=== PATIENT | female | born 1980 | race Two or more races ===

== ENCOUNTER 2023-08-16 08:16 | Outpatient (CLI) | payer OTHER | END 2023-08-16 08:25 | disposition home or self-care (01) | LOC: LAB 08:16 → EDBD 08:16 → LAB 08:25 | PROVIDERS: ATTEND General Practice | DX: E78.2 Mixed hyperlipidemia (principal); E11.9 Type 2 diabetes mellitus without complications; I11.9 Hypertensive heart disease without heart failure; E03.9 Hypothyroidism, unspecified; J45.909 Unspecified asthma, uncomplicated ==

== ENCOUNTER 2023-09-16 10:36 | Outpatient (CLI) | payer OTHER | END 2023-09-16 10:40 | disposition home or self-care (01) | LOC: MAMO-SONO 10:36 | PROVIDERS: ATTEND Obstetrics & Gynecology | DX: Z12.31 Encounter for screening mammogram for malignant neoplasm of breast (principal); N60.12 Diffuse cystic mastopathy of left breast; N60.11 Diffuse cystic mastopathy of right breast; N91.1 Secondary amenorrhea ==

== ENCOUNTER → 2024-09-18 07:13 | Outpatient (CLI) | payer OTHER ==
[2024-09-18 08:55] LABS: URINE APPEARANCE Clear; URINE BILIRRUBIN Negative (NEGATIVE); URINE BLOOD Small; URINE COLOR Yellow; URINE GLUCOSE Negative (NEGATIVE); URINE KETONE Negative (NEGATIVE); URINE LEUKOCYTE Small; URINE NITRATE Negative; URINE PROTEIN Negative (NEGATIVE); URINE UROBILINOGEN 0.2 E.U./dl
[2024-09-18 08:57] LABS: HEMATOCRIT 42.2 % (36.0-45.00); HEMOGLOBIN 14.4 g/dL (12.0-15.00); MEAN CELL VOLUME 91.8 fL (80.00-100.00); MEAN CORPUSCULAR HEMOGLOBIN 31.3 pg (27.00-32.0); MEAN CORPUSCULAR HGB CONC 34.1 g/dl (32.0-36.0); PLATELET COUNT 319 K/uL (150-450); RED BLOOD COUNT 4.59 M/uL (4.00-6.00); RED CELL DISTRIBUTION WIDTH 13.2 % (11.5-14.5)
[2024-09-18 09:00] LABS: URINE BACTERIA 3003.5 uL (0.0-1933); URINE EPITHELIAL CELLS 28.2 uL (0.0-38.8); URINE RBC 43.9 uL (0.0-20.8); URINE WBC 38.8 uL (0.0-23.2)
[2024-09-18 09:25] LABS: ALBUMIN 3.8 gm/dL (3.4-5.0); BILIRUBIN TOTAL 0.36 mg/dL (0.3-1.2); CALCIUM 9.2 mg/dL (8.5-10.1); CHOL HDL RATIO 3.1 (0-5.0); CREATININE SERUM 0.71 mg/dL (0.55-1.02); GFR 89.02; GLOBULINA 3.6 G/DL (2.4-3.5); POTASSIUM 4.27 mEq/L (3.5-5.1); T4 FREE 1.09 NG/ML (0.76-1.46); TOTAL PROTEIN 7.4 gm/dL (6.4-8.2); TSH 1.95 uIU/mL (0.358-3.74)
[2024-09-18 09:33] LABS: URINE CAST 0.45 uL (0.0-1.40)
[2024-09-22 15:10] LABS: sjogrens ssa 6.5 AI (0.0-0.9); sjogrens ssb < 0.2 AI (0.0-0.9)
== END | disposition home or self-care (01) ==
LOC: LAB 07:13
DX: E78.2 Mixed hyperlipidemia (principal); I10 Essential (primary) hypertension; N18.1 Chronic kidney disease, stage 1; E03.9 Hypothyroidism, unspecified; R73.01 Impaired fasting glucose; E04.1 Nontoxic single thyroid nodule

== ENCOUNTER 2024-10-26 07:42 | Outpatient (CLI) | payer OTHER | END 2024-10-26 07:56 | disposition home or self-care (01) | LOC: MAMO-SONO 07:42 | PROVIDERS: ATTEND Obstetrics & Gynecology | DX: N60.22 Fibroadenosis of left breast (principal); N60.21 Fibroadenosis of right breast; Z12.31 Encounter for screening mammogram for malignant neoplasm of breast ==

== ENCOUNTER 2025-05-28 09:17 | Outpatient (CLI) | payer OTHER | END 2025-05-28 09:22 | disposition home or self-care (01) | LOC: RAD 09:17 | PROVIDERS: ATTEND General Practice | DX: J45.909 Unspecified asthma, uncomplicated (principal) ==

== ENCOUNTER → 2025-07-12 06:17 | Outpatient (CLI) | payer OTHER ==
[2025-07-14 19:07] LABS: anti MPO AB < 0.2 units (0.0-0.9); anti pr3 < 0.2 units (0.0-0.9)
== END | disposition home or self-care (01) ==
LOC: LAB 06:17
PROVIDERS: ATTEND Internal Medicine Geriatric Medicine
DX: M31.30 Wegener's granulomatosis without renal involvement (principal)

== ENCOUNTER 2025-08-19 07:50 | Outpatient (CLI) | payer OTHER | END 2025-08-19 07:52 | disposition home or self-care (01) | LOC: SONOGRAMA 07:50 | DX: D53.1 Other megaloblastic anemias, not elsewhere classified (principal); H81.393 Other peripheral vertigo, bilateral; R73.01 Impaired fasting glucose; M35.00 Sjogren syndrome, unspecified; E04.1 Nontoxic single thyroid nodule ==